=== PATIENT | female | born 1970 ===

== ENCOUNTER 2017-01-24 22:31 | Emergency (ER) | payer SELFPAY ==
[~2017-01-24] VITALS: Ht 154.9 cm; Wt 70.4 kg
[2017-01-24 22:37] VITALS: Ht 154.9 cm; Wt 70.4 kg
== END 2017-01-24 23:31 | disposition left against medical advice (07) ==
LOC: FTE 22:31
DX: Z53.21 Procedure and treatment not carried out due to patient leaving prior to being seen by health care provider (principal)